=== PATIENT | female | born 1950 ===

== ENCOUNTER 2020-03-26 13:37 | Observation (INO) ==
[2020-03-26 14:25] LABS: Basophils # 0.1 10*3/uL (0.0-0.2); Basophils % 0.5 % (0.0-0.8); Eosinophils # 0.7 10*3/uL (0.0-0.87); Eosinophils % 4.3 % (0.00-10.9); Hematocrit 33.1 VOL% (35.7-47.0); Hemoglobin 10.9 GM/DL (12.0-16.0); Immature Granulocytes Absolute 0.16 #; Lymphocytes % 11.9 % (21.3-54.2); Mean Corpuscular HGB Conc 32.9 GM/DL (32-36); Mean Corpuscular Volume 87.8 FL (87-102); Monocytes % 7.7 % (1.7-12.7); Neutrophils % 74.6 % (38.7-73.9); Platelet Count 235 T/CUMM (130-400); Red Blood Count 3.77 MC/CUMM (3.8-5.5); Red Cell Distribution Width 13.4 % (9.3-17.3); White Blood Count 16.4 T/CUMM (4-12)
[2020-03-26 14:36] LABS: INR 1.1; PT Patient Result 11.4 SECS (9.8-11.9); Partial Thromboplastin Time 30.9 SECS (23.9-33.8)
[2020-03-26 14:58] LABS: Albumin 2.5 G/DL (3.4-5.0); Calcium 8.6 MG/DL (8.5-10.1); Total Protein 7.9 G/DL (6.4-8.3)
[2020-03-26] MEDS ORDERED: FUROSEMIDE 40 MG/4 ML VIAL IV STA (15:12)
[2020-03-26] MEDS ORDERED: DEXTROSE 50% 25 GM/50 ML VIAL IV PRN ×2 (15:56)
[2020-03-26] MEDS ORDERED: GLUCAGON 1 MG VIAL IM PRN ×2 (15:56)
[2020-03-26] MEDS ORDERED: DOCUSATE SODIUM 100 MG CAPSULE PO PRN (15:56)
[2020-03-26] MEDS ORDERED: ONDANSETRON 4 MG/2 ML VIAL IV PRN (15:56)
[2020-03-26] MEDS ORDERED: INSULIN REGULAR 100 UNIT/ML SUBCUT SCH (16:30)
[2020-03-26] MEDS ORDERED: MAGNESIUM SULF RIDER 2 GM in PREMIX 1 EACH IV PRN (16:48)
[2020-03-26] MEDS ORDERED: MAGNESIUM SULF RIDER 4 GM in PREMIX 1 EACH IV PRN (16:48)
[2020-03-26] MEDS ORDERED: hydrALAZINE 20 MG/1 ML VIAL IV PRN (17:02)
[2020-03-26] MEDS ORDERED: guaiFENesin/DM ER 600-30 MG TABLET PO PRN (17:02)
[2020-03-26] MEDS ORDERED: ZALEPLON 5 MG CAPSULE PO PRN (17:02)
[2020-03-26] MEDS: INSULIN NPH 100 UNIT/ML SUBCUT SCH (17:19)
[2020-03-26] MEDS: INSULIN REGULAR 100 UNIT/ML SUBCUT SCH ×2 (17:20→20:47)
[2020-03-26] MEDS: ENOXAPARIN 40 MG/0.4 ML SYRINGE SUBCUT SCH (17:34)
[2020-03-26] MEDS: metFORMIN 500 MG TABLET PO SCH (17:36)
[2020-03-26] MEDS: CLINDAMYCIN INJ 300 MG in PREMIX 1 EACH IV SCH (18:39)
[2020-03-26 19:42] LABS: Bilirubin,Urine Negative (Negative); Blood, Urine Small mg/dL (Negative); Glucose,Urine (UA) 50 mg/dL (Negative); Hyaline Casts,Urine 9 /LPF (0-3); Ketones,Urine Negative (Negative); Mucus,Urine Occasional /LPF (Occasional); Nitrite,Urine Negative (Negative); Protein,Urine 100 MG/DL; RBC,Urine 1 /HPF (0-4); Squamous Epithelial Cell,Urine Occasional /HPF (0-10); Urine Appearance CLEAR (Clear); Urine Color Yellow (Yellow); Urine Specific Gravity 1.008 (1.001-1.035); Urine Urobilinogen < 2.0 EU/DL (0.2-1.0); WBC,Urine 1 /HPF (0-6)
[2020-03-26] MEDS: ALBUTEROL/IPRATROPIUM 3 ML NEB RESP TX SCH (20:13)
[2020-03-26] MEDS: carvediloL 3.125 MG TABLET PO SCH (20:46)
[2020-03-26] MEDS: ACETAMINOPHEN 325 MG TABLET PO PRN (20:46)
[2020-03-26] MEDS: hydrALAZINE 25 MG TABLET PO SCH (20:46)
[2020-03-27] MEDS: ACETAMINOPHEN 325 MG TABLET PO PRN ×2 (00:31→10:17)
[2020-03-27] MEDS: ALBUTEROL/IPRATROPIUM 3 ML NEB RESP TX SCH ×4 (01:27→19:37)
[2020-03-27] MEDS: CLINDAMYCIN INJ 300 MG in PREMIX 1 EACH IV SCH ×3 (02:24→18:10)
[2020-03-27 05:39] LABS: Basophils % 0.4 % (0.0-0.8); Eosinophils % 4.4 % (0.00-10.9); Hematocrit 30.7 VOL% (35.7-47.0); Immature Granulocytes % 0.9 %; Lymphocytes % 24.1 % (21.3-54.2); Mean Corpuscular HGB Conc 32.6 GM/DL (32-36); Mean Corpuscular Volume 88.7 FL (87-102); Mean Platelet Volume 11.5 FL (9.6-12.0); Monocytes % 6.7 % (1.7-12.7); Neutrophils % 63.5 % (38.7-73.9); Platelet Count 210 T/CUMM (130-400); Red Blood Count 3.46 MC/CUMM (3.8-5.5); Red Cell Distribution Width 13.3 % (9.3-17.3); White Blood Count 12.5 T/CUMM (4-12)
[2020-03-27 05:40] LABS: Basophils # 0.1 10*3/uL (0.0-0.2); Eosinophils # 0.6 10*3/uL (0.0-0.87); Immature Granulocytes Absolute 0.11 #
[2020-03-27 05:58] LABS: Albumin 2.2 G/DL (3.4-5.0); Bilirubin,Total 0.8 MG/DL (0.2-1.0); Calcium 8.3 MG/DL (8.5-10.1); Osmolality,Calculated 278.1 MOS/KG (273-304); Total Protein 7.3 G/DL (6.4-8.3)
[2020-03-27 07:01] LABS: Risk Ratio 2.71; Thyroid Stimulating Hormone 3.19 uIU/ml (0.358-3.74); VLDL CHOLESTEROL 21.4 MG/DL
[2020-03-27] MEDS ORDERED: allopurinoL 100 MG TABLET PO SCH (09:00)
[2020-03-27] MEDS: metFORMIN 500 MG TABLET PO SCH ×2 (10:16→16:24)
[2020-03-27] MEDS: hydrALAZINE 25 MG TABLET PO SCH ×3 (10:16→20:47)
[2020-03-27] MEDS: OLMESARTAN 20 MG TABLET PO SCH (10:16)
[2020-03-27] MEDS: ASPIRIN CHEW 81 MG TABLET PO SCH (10:16)
[2020-03-27] MEDS: CHOLECALCIFEROL 1,000 UNIT TABLET PO SCH (10:17)
[2020-03-27] MEDS: carvediloL 3.125 MG TABLET PO SCH ×2 (10:17→20:47)
[2020-03-27] MEDS: INSULIN NPH 100 UNIT/ML SUBCUT SCH ×2 (10:18→17:38)
[2020-03-27] MEDS: INSULIN REGULAR 100 UNIT/ML SUBCUT SCH ×4 (10:18→21:26)
[2020-03-27] MEDS: hydroCHLOROthiazide 12.5 MG CAPSULE PO SCH (10:18)
[2020-03-27] MEDS: CYCLOBENZAPRINE 10 MG TABLET PO SCH ×2 (16:24→20:46)
[2020-03-27] MEDS: FUROSEMIDE 20 MG TABLET PO SCH (16:24)
[2020-03-27] MEDS: ENOXAPARIN 40 MG/0.4 ML SYRINGE SUBCUT SCH (16:26)
[2020-03-27 18:23] LABS: ABG HCO3 26.2 MMOL/L (20-26); ABG Oxygen Saturation 96.4 % (95-100); ABG PCO2 39.9 MM HG (35-48); ABG PH 7.429 (7.35-7.45); ABG PO2 79.8 MM HG (80-95); ABG TCO2 23.8 MMOL/L (23-27)
[2020-03-27] MEDS: allopurinoL 100 MG TABLET PO SCH (20:47)
[2020-03-27] MEDS: FLUTICASONE/SALMETEROL 100-50 DISKUS 14 DOSE INH SCH (20:54)
[2020-03-28] MEDS: CLINDAMYCIN INJ 300 MG in PREMIX 1 EACH IV SCH ×2 (01:32→09:17)
[2020-03-28] MEDS: ALBUTEROL/IPRATROPIUM 3 ML NEB RESP TX SCH ×4 (01:51→19:00)
[2020-03-28 06:55] LABS: Bilirubin,Total 0.6 MG/DL (0.2-1.0); Calcium 8.3 MG/DL (8.5-10.1); Total Protein 6.7 G/DL (6.4-8.3)
[2020-03-28] MEDS: allopurinoL 100 MG TABLET PO SCH ×2 (09:10→21:05)
[2020-03-28] MEDS: OLMESARTAN 20 MG TABLET PO SCH (09:10)
[2020-03-28] MEDS: CHOLECALCIFEROL 1,000 UNIT TABLET PO SCH (09:10)
[2020-03-28] MEDS: FUROSEMIDE 20 MG TABLET PO SCH ×2 (09:10→16:54)
[2020-03-28] MEDS: hydrALAZINE 25 MG TABLET PO SCH ×3 (09:11→21:06)
[2020-03-28] MEDS: CYCLOBENZAPRINE 10 MG TABLET PO SCH ×3 (09:11→21:06)
[2020-03-28] MEDS: metFORMIN 500 MG TABLET PO SCH ×2 (09:11→16:55)
[2020-03-28] MEDS: carvediloL 3.125 MG TABLET PO SCH ×2 (09:11→21:06)
[2020-03-28] MEDS: hydroCHLOROthiazide 12.5 MG CAPSULE PO SCH (09:11)
[2020-03-28] MEDS: ASPIRIN CHEW 81 MG TABLET PO SCH (09:11)
[2020-03-28] MEDS: INSULIN REGULAR 100 UNIT/ML SUBCUT SCH ×4 (09:13→21:08)
[2020-03-28] MEDS: INSULIN NPH 100 UNIT/ML SUBCUT SCH ×2 (09:14→16:55)
[2020-03-28] MEDS: FLUTICASONE/SALMETEROL 100-50 DISKUS 14 DOSE INH SCH ×2 (09:17→21:06)
[2020-03-28] MEDS: ENOXAPARIN 40 MG/0.4 ML SYRINGE SUBCUT SCH (16:54)
[2020-03-28] MEDS: cephALEXin 500 MG CAPSULE PO SCH (21:05)
[2020-03-29] MEDS: ALBUTEROL/IPRATROPIUM 3 ML NEB RESP TX SCH ×2 (01:40→07:40)
[2020-03-29 06:19] LABS: Albumin 2.2 G/DL (3.4-5.0); Bilirubin,Total 0.6 MG/DL (0.2-1.0); Calcium 8.6 MG/DL (8.5-10.1); Osmolality,Calculated 277.4 MOS/KG (273-304); Total Protein 7.1 G/DL (6.4-8.3)
[2020-03-29] MEDS: INSULIN REGULAR 100 UNIT/ML SUBCUT SCH ×2 (08:42→11:51)
[2020-03-29] MEDS: CHOLECALCIFEROL 1,000 UNIT TABLET PO SCH (08:44)
[2020-03-29] MEDS: cephALEXin 500 MG CAPSULE PO SCH (08:44)
[2020-03-29] MEDS: metFORMIN 500 MG TABLET PO SCH (08:44)
[2020-03-29] MEDS: FUROSEMIDE 20 MG TABLET PO SCH (08:44)
[2020-03-29] MEDS: OLMESARTAN 20 MG TABLET PO SCH (08:44)
[2020-03-29] MEDS: allopurinoL 100 MG TABLET PO SCH (08:44)
[2020-03-29] MEDS: ASPIRIN CHEW 81 MG TABLET PO SCH (08:44)
[2020-03-29] MEDS: hydroCHLOROthiazide 12.5 MG CAPSULE PO SCH (08:44)
[2020-03-29] MEDS: hydrALAZINE 25 MG TABLET PO SCH (08:44)
[2020-03-29] MEDS: carvediloL 3.125 MG TABLET PO SCH (08:45)
[2020-03-29] MEDS: INSULIN NPH 100 UNIT/ML SUBCUT SCH (08:46)
[2020-03-29] MEDS: FLUTICASONE/SALMETEROL 100-50 DISKUS 14 DOSE INH SCH (08:46)
[2020-03-29] MEDS: CYCLOBENZAPRINE 10 MG TABLET PO SCH (08:47)
[2020-03-29 11:56] VITALS: BP 179/74
[2020-03-30] MEDS ORDERED: OLMESARTAN 20 MG TABLET PO SCH (09:00)
== END 2020-03-29 15:45 | disposition home or self-care (01) ==
LOC: EDUNIT# → EDBD → N.EDINP 13:37 → N.ED 13:37 → N.EDINP 16:44 → N.TELEN 16:54
PROVIDERS: ADMIT Hospitalist; ATTEND Hospitalist